=== PATIENT | male | born 1975 | race Caucasian/White ===

== ENCOUNTER 2020-04-23 12:24 | Emergency (ER) | payer OTHER, SELFPAY ==
[2020-04-23 12:25] VITALS: BP 164/96; PULSE 83; RESP 98; TEMP 36.6; O2SAT 98; BMI 30.8
--- NOTE | 2020-04-23 13:01 | HMH.EDGENADL ---
ED Disposition Clinical Impression: Plantar fasciitis Disposition: Home, Self-Care Condition on Discharge: Good Instructions: DI for Plantar Fasciitis Additional Instructions: Ibuprofen for pain. Plantar fasciitis exercises. Follow-up with Dr. Cadet, head of quality. Call for appointment. Referrals: María Elena Rao [Primary Care Provider] - Azeb Cadet DPM [Staff Physician] - - Critical Care Critical Care Time: No Attestation: On 04/23/20, the high probability of a clinically significant, sudden or life threatening deterioration of the following system(s) required my full and direct attention, intervention and personal management. The time I documented below is in addition to time spent performing reported procedures but includes the following listed in this critical care notation. Medical Decision Making - Palmer Inquiry Pt receiving controlled substance: No Vital Signs: 04/23/20 12:25 Temperature 98 F Temperature Source Oral Pulse Rate [Radial] 83 Respiratory Rate 98 H Blood Pressure [Right Arm] 164/96 H Blood Pressure Mean [Right Arm] 118 Blood Pressure Position [Right Arm] Sitting 02 Sat by Pulse Oximetry 98 Oxygen Delivery Method Room Air Medical Decision Narrative: I recommended foot x-ray to assess for calcaneal spur. The patient declines. He does accept a referral to Dr. Cadet for podiatry treatment. Recommended NSAIDs and exercises until follow-up. General Adult HPI - General Chief complaint: PAIN Stated complaint: rt heel pain, no ao Time Seen by Provider: 04/23/20 13:01 Mode of Arrival: Ambulatory Limitations: No Limitations Description of Symptoms (Recalled from ER Triage Doc. by RN): TO ED PER PVT CAR WITH C/O RT HEEL PAIN X 1 MONTH. PT STATES STANDS ON CONCRETE AT WORK ALL DAY. PT PROGRESSIVELY GETTING WORSE. - History of Present Illness HPI narrative: Complains of pain in his right heel for a month and a half. It is worse first thing in the morning and worse after he sits down for a while, decreases after getting up and walking for a while. He has looked his symptoms up on the Internet and thinks it may be plantar fasciitis. No trauma or injury. He does walk on concrete floors at work. - Related Data Allergies Allergy/AdvReac Type Severity Reaction Status Date / Time codeine Allergy Verified 04/23/20 13:04 [facility] History - Hepatitis A Screen Drug use history?: No High risk sexual behaviors?: No History of sexually transmitted infection?: No Currently employed?: No Childcare worker?: No Do you have indoor plumbing?: Yes Do you have electricity?: Yes Attestation statement:: This patient has been screened for Hepatitis A risk factors. I have reviewed the patient's past medical history: Yes ROS Obtained: Yes Systems reviewed as appropriate & no additional complaints - Constitutional Constitutional: Denies fever(s) - Musculoskeletal Musculoskeletal: Reports as per HPI - Neurologic Neurologic: Denies numbness, Denies weakness Physical Exam - General General appearance: alert, in no apparent distress - Respiratory Respiratory exam: Absent: respiratory distress - Cardiovascular Cardiovascular exam: Present: regular rate, normal rhythm - Extremities Exam Extremities exam: Present: normal capillary refill - Neurological Exam Neurological exam: Present: alert, oriented X3. Absent: motor sensory deficit - Psychiatric Psychiatric exam: Present: normal affect, normal mood - Skin Skin exam: Present: warm, dry - Other Other exam information: Tenderness plantar aspect of right heel. No erythema. Skin is intact without ulcers. Distal neurovascular status is normal with good pulses, capillary refill, sensation, and warmth. Full range of motion.
[2020-04-23 13:17] VITALS: BP 160/82; PULSE 78; RESP 16; TEMP 36.6; O2SAT 98
== END 2020-04-23 13:18 | disposition home or self-care (01) ==
PROVIDERS: Emergency Provider Emergency Medicine; PCP Family Medicine
DX: M72.2 Plantar fascial fibromatosis (principal)
CPT/HCPCS: 99281

== ENCOUNTER 2024-09-20 10:30 | Emergency (ER) | payer OTHER, SELFPAY ==
[2024-09-20] VITALS (7 sets, daily range): BP systolic 110–123; BP diastolic 71–86; PULSE 69–90; RESP 16–17; TEMP 36.6–36.8; O2SAT 97–100; BMI 33.3
--- NOTE | 2024-09-20 10:37 | ECG_ITS ---
APPROVED REPORT Exam: Resting ECG HR:87 bpm ECG Measurements Heart Rate 87 AXES DE 141 P 58 QRSd 86 QRS 22 QT 327 T 66 QTc 371 Conclusion SINUS RHYTHM NORMAL ECG Electronically signed by : HECTOR IBARRA, 09/21/2024 02:30:48
--- NOTE | 2024-09-20 10:45 | CT_ITS ---
FINAL REPORT TECHNIQUE: NASCET technique utilized for stenosis evaluation. CLINICAL HISTORY: headache FINDINGS: A low-attenuation focus is seen in the inferior pole of the left lobe of the thyroid measuring 13 mm. RIGHT CAROTID: No significant stenosis is seen of the cervical common or internal carotid artery. LEFT CAROTID: No significant stenosis seen of the cervical common or internal carotid artery. VERTEBRALS: The vertebrals are patent. The right vertebral artery is dominant. No significant stenosis is present. IMPRESSION: No significant arterial abnormality. Reviewed, Interpreted and Dictated by Rush Lomas MD Transcribed by Carmen Mcghee Authenticated and [facility]
--- NOTE | 2024-09-20 10:45 | CT_ITS ---
FINAL REPORT TECHNIQUE: Multiple axial CT angiography images were performed from the foramen magnum to the vertex before and during IV contrast administration. This study was performed with techniques to keep radiation doses as low as reasonably achievable (ALARA). Individualized dose reduction techniques using automated exposure control or adjustment of mA and/or kV according to the patient's size were employed. CLINICAL HISTORY: headache FINDINGS: No acute intracranial hemorrhage or large acute cortical infarct. The brain volume is normal for the patient's age. Ventricles are of bracket normal in size and configuration. No midline shift. The basal cisterns are patent. CTA HEAD: The major intracranial arterial system is patent without hemodynamically significant stenosis or major vessel occlusion.No aneurysm is identified. IMPRESSION: No acute intracranial hemorrhage or large acute cortical infarct. No evidence of vascular injury, aneurysm, hemodynamically significant stenosis or major vessel occlusion of the intracranial arterial system. Reviewed, Interpreted and Dictated by Rush Lomas MD Transcribed by Carmen Mcghee Authenticated and . [facility]
--- NOTE | 2024-09-20 10:45 | CT_ITS ---
FINAL REPORT TECHNIQUE: Axial imaging of the head was obtained without contrast. This study was performed with techniques to keep radiation doses as low as reasonably achievable, (ALARA). Individualized dose reduction techniques using automated exposure control or adjustment of mA and/or kV according to the patient''s size were employed. CLINICAL HISTORY: headache FINDINGS: The ventricles are normal in size. There is no evidence of hemorrhage. No masses are identified. No extra-axial fluid is seen. The sinuses are normal. There is no acute osseous abnormality. IMPRESSION: No acute intracranial abnormality. Reviewed, Interpreted and Dictated by Rush Lomas MD Transcribed by Carmen Mcghee Authenticated and [facility]
--- OUTSIDE RECORDS SUMMARY | 2024-09-20 10:46 | XMS_ITS | Clinical Summary ---
Author Organization [facility] Address [address] [place] [address] Phone Care Team Providers Care Creel Cleaner Name Role Phone Unavailable Primary Care Provider Unavailabl e Allergies Active Allergy Reactions Criticality Noted Date Comments Hydrocodone Nausea Only Medium 06/21/2015 Medications metFORMIN XR (GLUCOPHAGE-XR) 500 mg Oral Tablet Sustained Release 24 hrIndications:Pr ediabetes Take 1 Tab by mouth daily (with breakfast). 90 Tab 1 0 Active Additional Information Patient not taking.Reason: Pt electing to not take the medication, Reported on 08/27/2021 albuterol (PROVENTIL HFA;VENTOLIN HFA) 90 mcg/actuation Inhl HFA Aerosol Inhaler Inhale 2 Puffs into the lungs every 4 hours as needed for shortness of Breath. 18 g 10/04/2020 4:04 PM EDT 1 Active Additional Information Patient not taking.Reported on 08/27/2021 pantoprazole (PROTONIX) 40 mg Oral Tablet, Delayed Release (E.C.)Indication s:Gastroesophage al reflux disease, unspecified whether esophagitis present Take 1 Tab by mouth daily. 90 Tab 3 1 Active Additional Information Patient not taking.Reported on 08/27/2021 meloxicam (MOBIC) 15 mg Oral TabletIndication s:Injury of low back, initial encounter Take 1 Tablet by mouth daily. 30 Tablet 2 2 Active Active Problems Problem Noted Date Diagnosed Date BMI 30.0-30.9,adult 10/03/2020 Prediabetes 11/16/2019 Right facial numbness 11/05/2019 Dysmetria 11/04/2019 Family history of cardiovascular disease 016 Family history of diabetes mellitus 06/21/2015 Major depressive disorder, r ecurrent, severe without psychotic features 06/21/2015 Chronic low back pain 06/21/2015 Marijuana use 06/21/2015 Cigarette nicotine dependence without complicati on 09/01/2012 Resolved Problems Problem Noted Date Diagnosed Date Resolved Date Bronchitis 10/03/2020 06/26/2023 Nonspecific chest pain 10/02/202006/25 Chest pain 10/02/2020 06/26/2023 Acute left hemiparesis 11/05/201909/19 Left shoulder pain 06/21/2015 Acute chest pain 09/01/2012 06/26/2023 Family history of ASCVD (art eriosclerotic cardiovascular disease) 09/01/2012 09/19/2020 Non morbid obesity due to excess calories 06/26/2023 Immunizations Immunization Administration Dates Next Due Pneumococcal Polysaccharide 23 Valent 11/05/2019 () Medical History Medical History Date Comments Normal coronary angiogram 09/01/2012 Heart abnormality thickened aort ic Wrist fracture, left from [place] Acute left hemiparesis (HCC) 11/05/2019 Family History Medical History Relation Name Comments Diabetes Father Yuval Valdes Heart Disease Father Yuval Valdes Lung Cancer Maternal Uncle smoker Relation Name Status Comments Brother Alive Daughter 1 Alive Daughter 2 Alive Daughter 3 Alive Father Yuval Valdes Alive Maternal Uncle Mother Alive Sister Alive Son 1 Alive Son 2 Alive Social History Tobacco Use Types Packs/Day Years Used Date Smoking Tobacco: Some Days Cigarettes 0.3 27.5 Started: 03/24/1997 Smokeless Tobacco: Never Tobacco Cessation:Ready to Q uit: No Alcohol Use Standard Drinks/Week Comments No 0 (1 standard drink = 0.6 oz pure alcohol) quit 2013- used to be heavy drinker Sexually Active Control Partners Comments Not Currently Sex and Gender Information Value Date Recorded Sex Assigned at Not on file Legal Sex Male 6:43 AM EDT Gender Identity Not on file Sexual Orientation Not on file Obstetrics History Last Filed Vital Signs Vital Sign Reading Time Taken Comments Blood Pressure 124/82 08/27/2021 11:38 AM EDT Pulse 95 08/27/2021 11:38 AM EDT Temperature 36.4 C (97.5 F) 10/06/2020 12:55 PM EDT Respiratory Rate 18 08/27/2021 11:38 AM EDT Oxygen Saturation 97% 08/27/2021 11:38 AM EDT Inhaled Oxygen Concentration - - Weight 112 kg (247 lb) 08/27/2021 11:38 AM EDT Height 188 cm (6' 2 ) 08/27/2021 11:38 AM EDT Body Mass Index 31.71 08/27/2021 11:38 AM EDT Plan of Treatment Health Maintenance Due Date Last Done Comments Annual Wellness Exam 06/19/1979 DTaP/TDaP/Td (1 - Tdap) 06/19/1995 Hepatitis B Vaccine (1 of 3 - 19+ 3-dose series) 06/19/1995 Pneumococcal Vaccine 0-49 (1 of 2 - PCV) 06/19/1995 Cologuard 2021 Colon Cancer Screening 2021 Colonoscopy 2021 FIT 2021 Sigmoidoscopy 2021 Virtual Colonography 2021 COVID-19 Vaccine (1 - 2023-2 5 season) 2023 Influenza Vaccine (Season Ended) 2024 06/21/2015 (Declined) Meningococcal B Vaccine Aged Out No l onger eligible based on patient's age to complete this topic Goals Goal Patient Goal Type Associated Problems Recent Progress Patient-Stated? Author Quit smoking General Not on track( 016 3:09 PM EDT) Yes María Elena Chand MD Maintain a healthy diet, exercise regularly and maintain an ideal body weight General No Marine Villa RMA Stay Tobacco Free Lifestyle No Marine [place] RMA Insurance [facility] [employer] [place] [facility] [employer] [place] Advance Directives For more information, please contact: [phone] * Full Code (Latest Code Status on File) Date Activated Date Inactivated Comments 10/02/2020 11:24 PM 10/04/2020 9:03 PM * Full Code Date Activated Date Inactivated Comments 11/04/2019 7:27 PM 11/05/2019 8:13 PM
[2024-09-20 10:55] LABS: Basophils # 0.1 K/mm3 (0-0.2); Basophils % 0.8 % (0.1-2.0); Eosinophils # 0.2 Kmm3 (0.0-0.4); Eosinophils % 2.5 % (0.1-12.0); Hematocrit 47.2 % (42.0-52.0); Hemoglobin 15.4 g/dL (14.1-18.0); Immature Granulocytes # 0.03 10^3uL; Immature Granulocytes % 0.4 %; Lymphocytes # 1.4 K/mm3 (0.7-4.5); Lymphocytes % 18.3 % (10-50); Mean Corpuscular HGB Conc 32.6 g/dL (31.8-35.4); Mean Corpuscular Hemoglobin 27.3 pg (27.0-31.2); Mean Corpuscular Volume 83.7 fl (80-94); Mean Platelet Volume 9.5 fl (7.4-10.4); Monocytes # 0.6 K/mm3 (0.1-1.0); Monocytes % 8.5 % (1.7-9.3); Neutrophils # 5.3 K/mm3 (1.8-7.8); Neutrophils % 69.5 % (37.0-80.0); Nucleated Red Blood Cells # 0 10^3/uL; Nucleated Red Blood Cells % 0 %; Platelet Count 304 K/mm3 (142-424); Red Blood Count 5.64 M/mm3 (4.60-6.20); Red Cell Distribution Width 13.9 % (11.5-17.5); Red Cell Distribution Width-SD 42.5 fL; White Blood Count 7.6 K/mm3 (4.8-10.8)
--- NOTE | 2024-09-20 10:55 | ED_ITS ---
Discharge Plan Disposition Patient Disposition: Home, Self-Care Referrals Follow up/Referrals: Provider,Referral, [Referring, Medical] - See instructions Activity Restrictions/Add. Instructions Additional Instructions/Restrictions: Please follow-up with your PCP and neurologist for an outpatient MRI since your headache has not improved. 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 Patient states that it started on . He states that he was in bed consistently until Friday when the pain eased up. He says he got out and got a load of wood until the headache came back and then he was in bed again until Friday morning when he went to work. Patient states that he used to get headaches and they would go away but this is not a migraine. He states that it does not affect his vision. He wears glasses and he thought it might be the case but it is not. He states he has no nausea no vomiting. He denies any weakness in his body. Denies any dizziness. However I did notice in the nursing note that the nurse note dizziness and lightheaded. He denied those to me. I did notice that his blood pressure was elevated. I asked him about hypertension. He says that he does not know. He never goes to the doctor. Patient denies any ear pain but says that the pain in the right side shoots pain down the side of his head for a few seconds and goes away. Related Data Allergies Allergy/AdvReac Type Severity Reaction Status Date / Time codeine Allergy Verified 04/23/20 13:04 PFSH <Penelope Dominguez (ED), [employer] INSTALLER - Last Filed: 09/20/24 12:59> PFS Disclaimer: The information contained in this section may have been updated after the patient was seen, as this information can be updated by other users. Social History Smoking Status: Current every day smoker alcohol intake: never current occupational status: other Travel in the last 8 weeks?: None Other Medical History Have you received the Flu Vaccine for this season: Yes Have you received the Pneumonia Vaccine: Yes <[facility] (ED), SC[employer] INSTALLER - Last Filed: 09/20/24 12:59> ROS Obtained: Yes Systems reviewed as appropriate & no additional complaints except as documented Constitutional Constitutional: Reports as per HPI Physical Exam <[facility] (ED), SCALE INSTALLER - Last Filed: 09/20/24 12:59> General General appearance: alert and anxious Head Head exam: atraumatic and normocephalic Eye Eye exam: Present normal appearance, PERRL and EOMI ENT ENT exam: Present normal oropharynx and mucous membranes moist Neck Neck exam: Present normal inspection, full ROM and trachea midline Respiratory Respiratory exam: Present normal lung sounds bilaterally Cardiovascular Cardiovascular exam: Present regular rate, normal rhythm, normal heart sounds, +S1 and +S2 Abdominal Exam Abdominal exam: Present soft and normal bowel sounds Extremities Exam Extremities exam: Present normal inspection, full ROM and normal capillary refill Neurological Exam Neurological exam: Present alert, oriented X3 and normal gait Psychiatric Psychiatric exam: Present normal affect and anxious Skin Skin exam: Present warm, dry and intact Medical Decision Making <[facility] (ED), SC[employer] INSTALLER - Last Filed: 09/20/24 12:59> Medical Records Medical records reviewed: Yes I reviewed the patient's medical records. Screening: Per USPSTF and CDC recommendations, given the prevalence of disease in our region, it is our hospital?s policy to screen for HIV and viral Hepatitis for all patients aged 18 and over and those with ongoing risk factors. Palmer Inquiry Pt receiving controlled substance: No Palmer was queried for this patient: No Vital Signs: 09/20/24 10:52 09/20/24 10:59 09/20/24 11:27 Temperature 98.0 F 98 F Temperature Source Oral Oral Pulse Rate 90 80 Pulse Rate [Right] 90 Respiratory Rate 17 17 Blood Pressure 119/84 110/71 Blood Pressure [Right Arm] 119/84 Blood Pressure Mean [Right Arm] 95 Blood Pressure Source Automatic Cuff Blood Pressure Source [Right Arm] Automatic Cuff Blood Pressure Position Supine Blood Pressure Position [Right Arm] Supine 02 Sat by Pulse Oximetry 97 97 100 Oxygen Delivery Method Room Air Room Air 09/20/24 11:30 09/20/24 11:37 09/20/24 12:00 Temperature Temperature Source Pulse Rate 80 83 69 Pulse Rate [Right] Respiratory Rate Blood Pressure 114/86 114/86 123/85 Blood Pressure [Right Arm] Blood Pressure Mean [Right Arm] Blood Pressure Source Blood Pressure Source [Right Arm] Blood Pressure Position Blood Pressure Position [Right Arm] 02 Sat by Pulse Oximetry 100 100 99 Oxygen Delivery Method Room Air 09/20/24 13:04 Temperature 98.2 F Temperature Source Oral Pulse Rate 70 Pulse Rate [Right] Respiratory Rate 16 Blood Pressure 123/85 Blood Pressure [Right Arm] Blood Pressure Mean [Right Arm] Blood Pressure Source Blood Pressure Source [Right Arm] Blood Pressure Position Blood Pressure Position [Right Arm] 02 Sat by Pulse Oximetry Oxygen Delivery Method Room Air Lab Data Lab Results 09/20/24 10:48: WBC 7.6, RBC 5.64, Hgb 15.4, Hct 47.2, MCV 83.7, MCH 27.3, MCHC 32.6, RDW 13.9, Plt Count 304, MPV 9.5, Neut % (Auto) 69.5, Lymph % (Auto) 18.3, [place] % (Auto) 8.5, Eos % (Auto) 2.5, Baso % (Auto) 0.8, Neut # (Auto) 5.3, Lymph # (Auto) 1.4, [place] # (Auto) 0.6, Eos # (Auto) 0.2, Baso # (Auto) 0.1, ESR 25 H, Sodium 139, Potassium 4.5, Chloride 101, Carbon Dioxide 28, Anion Gap 14.5, BUN 15, Creatinine 1.10, Estimated Creat Clear 137, Estimated GFR 71, Est GFR ( Amer) 86, Glucose 94, Calcium 9.2, Magnesium 2.3, Total Bilirubin 0.2, AST 32, ALT 39, Alkaline Phosphatase 96, C-Reactive Protein 7.0 H, Total Protein 8.0, Albumin 4.5, Globulin 3.5 H, Albumin/Globulin Ratio 1.3, HIV Ag/Ab Combo Qual Negative 09/20/24 10:48 09/20/24 10:48 Orders (Tests/Meds): ED MEDICATIONS Discontinued Medications Generic Name Dose Route Start Last Admin Trade Name Jeff PRN Reason Stop Dose Admin Acetaminophen 1,000 mg 09/20/24 10:47 09/20/24 10:56 Acetaminophen 1,000mg/100ml Vial IV 09/20/24 10:48 1,000 mg ONCE ONE Administration Dexamethasone Sodium Phosphate 8 mg 09/20/24 12:29 09/20/24 12:41 Dexamethasone 4mg/Ml 1ml Vial IV 09/20/24 12:30 8 mg ONCE ONE Administration Diphenhydramine HCl 50 mg 09/20/24 10:53 09/20/24 11:16 Diphenhydramine 50mg/Ml Vial IV 09/20/24 10:54 50 mg ONCE ONE Administration Diphenhydramine HCl 25 mg 09/20/24 12:29 09/20/24 12:39 Diphenhydramine 50mg/Ml Vial IV 09/20/24 12:30 Not Given ONCE ONE Sodium Chloride 1,000 mls @ 999 mls/hr 09/20/24 10:47 09/20/24 10:56 Sod Chlor 0.9% 1000ml Bag IV 09/20/24 11:47 999 mls/hr .Q1H1M ONE Administration Iopamidol 80 ml 09/20/24 11:07 09/20/24 11:09 Iopamidol-370 (76%);100ml Bottle IV 09/20/24 11:08 80 ml ONCE ONE Administration Ketorolac Tromethamine 30 mg 09/20/24 12:39 09/20/24 12:41 Ketorolac 30mg/Ml Vial IV 09/20/24 12:40 30 mg ONCE ONE Administration Metoclopramide HCl 10 mg 09/20/24 12:29 09/20/24 12:39 Metoclopramide Hcl 10mg/2ml Vial IVP 09/20/24 12:30 Not Given ONCE ONE Prochlorperazine Edisylate 5 mg 09/20/24 10:53 09/20/24 11:16 Prochlorperazine 10mg/2ml Vial IV 09/20/24 10:54 5 mg ONCE ONE Administration Sodium Chloride 50 ml 09/20/24 11:07 09/20/24 11:09 0.9 % Sodium Chloride 50 Ml Vial IV 09/20/24 11:08 50 ml ONCE ONE Administration Sodium Chloride 10 ml 09/20/24 11:07 09/20/24 11:09 Sodium Chloride 0.9% 10ml Syr (Rad Only) IV 09/20/24 11:08 10 ml ONCE ONE Administration ORDERS Category Date Time Status CT angio head Stat Cat Scan 09/20/24 10:[address] angio neck Stat Cat Scan 09/20/24 10:[address] head/brain wo con Stat Cat Scan 09/20/24 10:45 Completed CBC w/Auto Diff [Complete Blood Count Auto Diff] Stat Lab 09/20/24 10:48 Completed CRP [C-Reactive Protein] Stat Lab 09/20/24 10:48 Completed Comprehensive Metabolic Panel Stat Lab 09/20/24 10:48 Completed Erythrocyte Sedimentation Rate Stat Lab 09/20/24 10:48 Completed HIV Combo Stat Lab 09/20/24 10:48 Completed Hepatitis C Ab Qual. W/ RFX Stat Lab 09/20/24 10:48 Received Magnesium Stat Lab 09/20/24 10:48 Completed Medical Decision Narrative: patient is a 49-year-old male presenting to the emergency department for evaluation of right-sided headache that shoots pain into his right head. Patient is hemodynamically stable and nontoxic-appearing upon arrival, afebrile. Differential diagnosis includes head trauma, head bleed, temporal arteritis, stroke, among others. Workup will be conducted with hematologic labs, specific imaging including CTA of head and neck. Initial inventions include crystalloid bolus, analgesics. Initial workup reviewed by me hematologic labs are remarkable for nothing acute. Imaging informally interpreted by me and remarkable for nothing acute. Please see formal radiology read. Upon repeat evaluation patient's pain is now improved, however please follow-up with neurology as we talked about. Please also follow-up with PCP. We discussed this and patient told me that he would follow-up outpatient. Patient is just ready to leave the emergency department. Patient understands that he must follow-up. <Sushil Puri MD - Last Filed: 09/20/24 13:24> Vital Signs: 09/20/24 10:52 09/20/24 10:59 09/20/24 11:27 Temperature 98.0 F 98 F Temperature Source Oral Oral Pulse Rate 90 80 Pulse Rate [Right] 90 Respiratory Rate 17 17 Blood Pressure 119/84 110/71 Blood Pressure [Right Arm] 119/84 Blood Pressure Mean [Right Arm] 95 Blood Pressure Source Automatic Cuff Blood Pressure Source [Right Arm] Automatic Cuff Blood Pressure Position Supine Blood Pressure Position [Right Arm] Supine 02 Sat by Pulse Oximetry 97 97 100 Oxygen Delivery Method Room Air Room Air 09/20/24 11:30 09/20/24 11:37 09/20/24 12:00 Temperature Temperature Source Pulse Rate 80 83 69 Pulse Rate [Right] Respiratory Rate Blood Pressure 114/86 114/86 123/85 Blood Pressure [Right Arm] Blood Pressure Mean [Right Arm] Blood Pressure Source Blood Pressure Source [Right Arm] Blood Pressure Position Blood Pressure Position [Right Arm] 02 Sat by Pulse Oximetry 100 100 99 Oxygen Delivery Method Room Air 09/20/24 13:04 Temperature 98.2 F Temperature Source Oral Pulse Rate 70 Pulse Rate [Right] Respiratory Rate 16 Blood Pressure 123/85 Blood Pressure [Right Arm] Blood Pressure Mean [Right Arm] Blood Pressure Source Blood Pressure Source [Right Arm] Blood Pressure Position Blood Pressure Position [Right Arm] 02 Sat by Pulse Oximetry Oxygen Delivery Method Room Air Lab Data Lab Results 09/20/24 10:48: WBC 7.6, RBC 5.64, Hgb 15.4, Hct 47.2, MCV 83.7, MCH 27.3, MCHC 32.6, RDW 13.9, Plt Count 304, MPV 9.5, Neut % (Auto) 69.5, Lymph % (Auto) 18.3, [place] % (Auto) 8.5, Eos % (Auto) 2.5, Baso % (Auto) 0.8, Neut # (Auto) 5.3, Lymph # (Auto) 1.4, [place] # (Auto) 0.6, Eos # (Auto) 0.2, Baso # (Auto) 0.1, ESR 25 H, Sodium 139, Potassium 4.5, Chloride 101, Carbon Dioxide 28, Anion Gap 14.5, BUN 15, Creatinine 1.10, Estimated Creat Clear 137, Estimated GFR 71, Est GFR ( Amer) 86, Glucose 94, Calcium 9.2, Magnesium 2.3, Total Bilirubin 0.2, AST 32, ALT 39, Alkaline Phosphatase 96, C-Reactive Protein 7.0 H, Total Protein 8.0, Albumin 4.5, Globulin 3.5 H, Albumin/Globulin Ratio 1.3, HIV Ag/Ab Combo Qual Negative Orders (Tests/Meds): ED MEDICATIONS Discontinued Medications Generic Name Dose Route Start Last Admin Trade Name Jeff PRN Reason Stop Dose Admin Acetaminophen 1,000 mg 09/20/24 10:47 09/20/24 10:56 Acetaminophen 1,000mg/100ml Vial IV 09/20/24 10:48 1,000 mg ONCE ONE Administration Dexamethasone Sodium Phosphate 8 mg 09/20/24 12:29 09/20/24 12:41 Dexamethasone 4mg/Ml 1ml Vial IV 09/20/24 12:30 8 mg ONCE ONE Administration Diphenhydramine HCl 50 mg 09/20/24 10:53 09/20/24 11:16 Diphenhydramine 50mg/Ml Vial IV 09/20/24 10:54 50 mg ONCE ONE Administration Diphenhydramine HCl 25 mg 09/20/24 12:29 09/20/24 12:39 Diphenhydramine 50mg/Ml Vial IV 09/20/24 12:30 Not Given ONCE ONE Sodium Chloride 1,000 mls @ 999 mls/hr 09/20/24 10:47 09/20/24 10:56 Sod Chlor 0.9% 1000ml Bag IV 09/20/24 11:47 999 mls/hr .Q1H1M ONE Administration Iopamidol 80 ml 09/20/24 11:07 09/20/24 11:09 Iopamidol-370 (76%);100ml Bottle IV 09/20/24 11:08 80 ml ONCE ONE Administration Ketorolac Tromethamine 30 mg 09/20/24 12:39 09/20/24 12:41 Ketorolac 30mg/Ml Vial IV 09/20/24 12:40 30 mg ONCE ONE Administration Metoclopramide HCl 10 mg 09/20/24 12:29 09/20/24 12:39 Metoclopramide Hcl 10mg/2ml Vial IVP 09/20/24 12:30 Not Given ONCE ONE Prochlorperazine Edisylate 5 mg 09/20/24 10:53 09/20/24 11:16 Prochlorperazine 10mg/2ml Vial IV 09/20/24 10:54 5 mg ONCE ONE Administration Sodium Chloride 50 ml 09/20/24 11:07 09/20/24 11:09 0.9 % Sodium Chloride 50 Ml Vial IV 09/20/24 11:08 50 ml ONCE ONE Administration Sodium Chloride 10 ml 09/20/24 11:07 09/20/24 11:09 Sodium Chloride 0.9% 10ml Syr (Rad Only) IV 09/20/24 11:08 10 ml ONCE ONE Administration ORDERS Category Date Time Status CT angio head Stat Cat Scan 09/20/24 10:[address] angio neck Stat Cat Scan 09/20/24 10:[address] head/brain wo con Stat Cat Scan 09/20/24 10:45 Completed CBC w/Auto Diff [Complete Blood Count Auto Diff] Stat Lab 09/20/24 10:48 Completed CRP [C-Reactive Protein] Stat Lab 09/20/24 10:48 Completed Comprehensive Metabolic Panel Stat Lab 09/20/24 10:48 Completed Erythrocyte Sedimentation Rate Stat Lab 09/20/24 10:48 Completed HIV Combo Stat Lab 09/20/24 10:48 Completed Hepatitis C Ab Qual. W/ RFX Stat Lab 09/20/24 10:48 Received Magnesium Stat Lab 09/20/24 10:48 Completed ECG Data Tracing #1: Independently inter by me rate is 87, rhythm is regular, axis is normal, no ST elevation in anatomical contiguous leads, QTc 371. Medical Decision Narrative: patient is a 49-year-old male presenting to the emergency department for evaluation of right-sided headache that shoots pain into his right head. Patient is hemodynamically stable and nontoxic-appearing upon arrival, afebrile. Differential diagnosis includes head trauma, head bleed, temporal arteritis, stroke, among others. Workup will be conducted with hematologic labs, specific imaging including CTA of head and neck. Initial inventions include crystalloid bolus, analgesics. Initial workup reviewed by me hematologic labs are remarkable for nothing acute. Imaging informally interpreted by me and remarkable for nothing acute. Please see formal radiology read. Upon repeat evaluation patient's pain is now improved, however please follow-up with neurology as we talked about. Please also follow-up with PCP. We discussed this and patient told me that he would follow-up outpatient. Patient is just ready to leave the emergency department. Patient understands that he must follow-up. I was consulted by the UTE, and we discussed the complexity of the problems being addressed. I approved the treatment and management plan for this patient's care in the emergency department, thus performing a substantive portion of the medical decision making. Sushil Puri MD Critical Care <Sushil Puri MD - Last Filed: 09/20/24 13:24> Critical Care Time Critical Care Time: No
[2024-09-20] MEDS: ACETAMINOPHEN 1,000MG/100ML VIAL 1000 MG IV (10:56)
[2024-09-20] MEDS: 0.9 % SODIUM CHLORIDE 1000ML 1,000 ML 999 ML IV (10:56)
[2024-09-20 11:01] LABS: Albumin Level 4.5 g/dl (3.5-5.0); Chloride 101 mmol/L (98-107); Potassium 4.5 mmoL/L (3.5-5.1); Sodium 139 mmol/L (136-145)
[2024-09-20 11:03] LABS: Blood Urea Nitrogen 15 mg/dl (9-20); Creatinine Clearance Estimated 137 mL/min (50-200); Estimated Glomerular Filt Rate 71 ml/min (>60); GFR (African American) 86 ML/MIN (>60)
[2024-09-20 11:04] LABS: Alanine Aminotransferase 39 U/L (12-78); Albumin/Globulin Ratio 1.3 (1.1-1.8); Alkaline Phosphatase 96 U/L (38-126); Anion Gap 14.5 mEq/L (5-15); Aspartate Amino Transferase 32 U/L (17-59); Bilirubin,Total 0.2 mg/dl (0.2-1.3); Calcium 9.2 mg/dl (8.4-10.2); Carbon Dioxide 28 mmol/L (22.0-30.0); Globulin 3.5 g/dL (1.3-3.2); Glucose 94 mg/dl (74-100); Magnesium 2.3 mg/dl (1.6-2.3)
[2024-09-20] MEDS: SODIUM CHLORIDE 0.9% 10ML SYR (RAD ONLY) 10 ML IV (11:09)
[2024-09-20] MEDS: IOPAMIDOL-370 (76%);100ML BOTTLE 80 ML IV (11:09)
[2024-09-20] MEDS: 0.9 % SODIUM CHLORIDE 50 ML VIAL IV (11:09)
[2024-09-20] MEDS: PROCHLORPERAZINE 10MG/2ML VIAL 5 MG IV (11:16)
[2024-09-20] MEDS: diphenhydrAMINE 50MG/ML VIAL 50 MG IV (11:16)
--- NOTE | 2024-09-20 11:17 | PC.NURSE ---
I rounded on the pt. I took him a warm blanket for comfort. no needs voiced. call ernandez in reach.
--- NOTE | 2024-09-20 11:36 | PC.NURSE ---
Received report from JASMINE Ahn.
[2024-09-20 12:08] LABS: HIV Combo NEGATIVE (Negative)
[2024-09-20 12:14] LABS: Erythrocyte Sedimentation Rate 25 mm/hr (0-15)
[2024-09-20] MEDS: DEXAMETHASONE 4MG/ML 1ML VIAL 8 MG IV (12:41)
[2024-09-20] MEDS: KETOROLAC 30MG/ML VIAL 30 MG IV (12:41)
[2024-09-20 13:58] LABS: Hepatitis C Ab Qual. W/ RFX NEGATIVE (Negative)
== END 2024-09-20 13:06 | disposition home or self-care (01) ==
PROVIDERS: Nurse Practitioner; Emergency Provider Emergency Medicine; PCP Pediatrics
DX: G43.909 Migraine, unspecified, not intractable, without status migrainosus (principal); F17.210 Nicotine dependence, cigarettes, uncomplicated
CPT/HCPCS: 70450; 70496; 70498; 80053; 83735; 85025; 85651; 86140; 86803; 87389; 93005; 96361; 96374; 96375; 99285; J0131; J0780; J1100; J1200; J1885; J7030; Q9967